=== PATIENT | male | born 1980 | race Caucasian/White ===

== ENCOUNTER 2017-09-09 18:00 | Emergency (ER) | payer BC ==
[~2017-09-09 18:00] MED LIST: ADDE5TAB PO; BACT800T5 PO; DOXY100T PO; HYDR-3533 PO; IBUP800T23 PO
[2017-09-09 18:01] VITALS: BP 164/81; PULSE 79; RESP 15; TEMP 98.2; O2SAT 97
--- NOTE | 2017-09-09 18:53 | RADRPT ---
EXAM DATE/TIME: 09/09/2017 18:24 [place] COMPARISON: No previous studies available for comparison. INDICATIONS : Chest pain. MEDICAL HISTORY : None. SURGICAL HISTORY : None. ENCOUNTER: Initial ACUITY: 3 days PAIN SCORE: 8/10 LOCATION: Bilateral chest FINDINGS: PA and lateral views of the chest demonstrate the lungs to be symmetrically aerated without evidence of mass, infiltrate or effusion. The cardiomediastinal contours are unremarkable. Osseous structure s are intact. CONCLUSION: Normal examination. Filipe Mendez MD on September 09, 2017 at 18:52 Board Certified Radiologist. This report was verified electronically.
[2017-09-09 20:09] LABS: BLOOD, URINE NEG (NEG); COMMENT (UR) CULT NOT INDICATED; CULTURE IF INDICATED CULT NOT INDICATED; GLUCOSE,URINE NEG (NEG); KETONE, URINE NEG (NEG); MUCUS URINE FEW /lpf (OCC); NITRITE,URINE NEG (NEG); SQUAMOUS EPITHELIAL CELL URINE <1 /hpf (0-5); URINE COLOR YELLOW (YELLW/STRAW)
[2017-09-09 20:22] LABS: AUTOMATED NEUTROPHIL # 4.5 TH/MM3 (1.8-7.7); BASOPHIL # 0.1 TH/MM3 (0-0.2); BASOPHIL % 0.8 % (0.0-2.0); EOSINOPHIL # 0.5 TH/MM3 (0-0.4); EOSINOPHIL % 5.5 % (0.0-4.0); HEMATOCRIT 45.4 % (39.0-51.0); HEMO FLAGS DIFF FINAL; LYMPH % 30.2 % (9.0-44.0); LYMPHOCYTE # 2.7 TH/MM3 (1.0-4.8); MEAN CELL VOLUME 89.6 FL (80.0-100.0); MEAN CORPUSCULAR HEMOGLOBIN 30.6 PG (27.0-34.0); MEAN CORPUSCULAR HGB CONC 34.1 % (32.0-36.0); MONO % 12.2 % (0.0-8.0); NEUT % 51.3 % (16.0-70.0); PLATELET COUNT 234 TH/MM3 (150-450); RED BLOOD COUNT 5.07 MIL/MM3 (4.50-5.90); WHITE BLOOD COUNT 8.8 TH/MM3 (4.0-11.0)
--- NOTE | 2017-09-09 20:22 | PD ---
HPI . LUQ Abdominal pain Chief Complaint: Abdominal Pain Time Seen by Provider: 19:08 Travel History International Travel<30 days: No Contact w/Intl Traveler<30days: No Traveled to known affect area: No History of Present Illness HPI Pt is a 36yo male who presents to the ED with LUQ abdominal pain with SOB, diaphoresis, and nausea x 2 days. Pt describes the pain as 4/10 and states that the pain is dull and irritating in nature and is "right below the L rib cage". Pt also states that his pain is more noticeable with change of position but otherwise has not had any modifiers. Pt was recently traveling back from a hunting trip in [place] and states that he may be a tad dehyrated and have some diarrhea related to his alcohol consumption on the trip. Pt has no significant PMHx and takes no medications. He has NKDA. PFSH Past Medical History ADD: Yes Integumentary: Yes (numerous sites with stitches placed/removed) Past Surgical History Surgical History: No Previous Surgery Social History Alcohol Use: Yes (Beer ) Tobacco Use: No Substance Use: Yes (occisional ) Allergies-Medications (Allergen,Severity, Reaction): Coded Allergies: No Known Allergies (Unverified Adverse Reaction, Unknown, 09/09/17) Reported Meds & Prescriptions Reported Meds & Active Scripts Active Review of Systems General / Constitutional: No: Fever, Chills, Weight Gain, Weight Loss, Other Eyes: No: Diploplia, Blurred Vision, Photophobia, Drainage, Redness, Foreign Body Sensation, Pain, Tearing, Blind Spots, Visual changes, Blindness, Other HENT: No: Headaches, Vertigo, Lightheadedness, Sore Throat, Rhinitis, Rhinorrhea, Congestion, Nosebleed, Neck Stiffness, Neck Pain, Masses, Gingival Bleeding, Dental Difficulties, Ear Discharge, Earache, Other Cardiovascular: Positive: Diaphoresis Respiratory: Positive: Shortness of Breath, Orthopnea Gastrointestinal: Positive: Nausea, Diarrhea, Abdominal Pain Genitourinary: No: Urgency, Frequency, Dysuria, Nocturia, Hematuria, Decreased Urinary Output, Oliguria, Hesitancy, Dribbling, Incontinence, Pelvic Pain, Flank Pain, Dyspareunia, Discharge, Dysmenorrhea, Menorrhagia, Metorrhagia, Vaginal Bleeding, Other Musculoskeletal: Positive: Myalgias, Pain Skin: No Rash, No Itching, No Dryness, No Lumps, No Hives, No Change in Pigmentation, No Change in nails, No Alopecia, No Lesions, No Breast Lumps, No Breast Tenderness, No Breast Swelling, No Other Neurologic: No: Weakness, Dizziness, Syncope, Focal Abnormalities, Coordination Problem, Tremor, Ataxia, Headache, Change in Mentation, Slurred Speech, Paresthesia, Incontinence, Seizures, Sensory Disturbance, Other Psychiatric: No: Anxiety, Depression, Suicidal Ideations, Disorder of Thought, Mood Disorder, Substance Abuse, Homicidal Ideation, Other Endocrine: No: Heat Intolerance, Cold Intolerance, Polyuria, Polydipsia, Other Hematologic/Lymphatic: No: Easy Bruising, Lymph Node Enlargement, Other Physical Exam Narrative GENERAL: alert and oriented x 4. NAD. HEAD: atraumatic, normocephalic. NECK: supple. no lymphadenopathy. SKIN: warm, dry, no tinting or cyanosis. ABDOMEN: soft, nondistended, nontender to superficial and deep palpation, normoactive bowel sounds. CV: RRR no rubs, gallops, or murmurs. good capillary refill. equal distal pulses. RESPIRATORY: CTA bilat, no rales, wheezes, or rhonchi, good aeration and breath sounds throughout. PSYCH: Appropriate mood and affect. Data Data Last Documented VS Vital Signs Date Time Temp Pulse Resp B/P (MAP) Pulse Ox O2 Delivery O2 Flow Rate FiO2 09/09/17 18:01 98.2 79 15 164/81 (108) 97 Orders Orders Complete Blood Count With Diff (09/09/17 18:) Comprehensive Metabolic Panel (09/09/17 18:) Lipase (09/09/17 18:) Prothrombin Time / Inr (Pt) (09/09/17 18:) Act Partial Throm Time (Ptt) (09/09/17 18:) Urinalysis - C+S If Indicated (09/09/17 18:) Electrocardiogram (09/09/17 18:) Chest, Pa & Lat (09/09/17 ) Labs Laboratory Tests Test 09/09/17 18:50 09/09/17 19:55 White Blood Count 8.8 TH/MM3 Red Blood Count 5.07 MIL/MM3 Hemoglobin 15.5 GM/DL Hematocrit 45.4 % Mean Corpuscular Volume 89.6 FL Mean Corpuscular Hemoglobin 30.6 PG Mean Corpuscular Hemoglobin Concent 34.1 % Red Cell Distribution Width 13.0 % Platelet Count 234 TH/MM3 Mean Platelet Volume 8.7 FL Neutrophils (%) (Auto) 51.3 % Lymphocytes (%) (Auto) 30.2 % Monocytes (%) (Auto) 12.2 % Eosinophils (%) (Auto) 5.5 % Basophils (%) (Auto) 0.8 % Neutrophils # (Auto) 4.5 TH/MM3 Lymphocytes # (Auto) 2.7 TH/MM3 Monocytes # (Auto) 1.1 TH/MM3 Eosinophils # (Auto) 0.5 TH/MM3 Basophils # (Auto) 0.1 TH/MM3 CBC Comment DIFF FINAL Differential Comment Prothrombin Time 10.7 SEC Prothromb Time International Ratio 1.0 RATIO Activated Partial Thromboplast Time 24.1 SEC Blood Urea Nitrogen 16 MG/DL Creatinine 1.07 MG/DL Random Glucose 104 MG/DL Total Protein 7.6 GM/DL Albumin 4.2 GM/DL Calcium Level 9.3 MG/DL Alkaline Phosphatase 62 U/L Aspartate Amino Transf (AST/SGOT) 20 U/L Alanine Aminotransferase (ALT/SGPT) 29 U/L Total Bilirubin 0.6 MG/DL Sodium Level 135 MEQ/L Potassium Level 3.7 MEQ/L Chloride Level 100 MEQ/L Carbon Dioxide Level 26.7 MEQ/L Anion Gap 8 MEQ/L Estimat Glomerular Filtration Rate 78 ML/MIN Lipase 95 U/L Urine Color YELLOW Urine Turbidity CLEAR Urine pH 6.0 Urine Specific [place] 1.029 Urine Protein TRACE mg/dL Urine Glucose (UA) NEG mg/dL Urine Ketones NEG mg/dL Urine Occult Blood NEG Urine Nitrite NEG Urine Bilirubin NEG Urine Urobilinogen LESS THAN 2.0 MG/DL Urine Leukocyte Esterase NEG Urine RBC LESS THAN 1 /hpf Urine WBC LESS THAN 1 /hpf Urine Squamous Epithelial Cells <1 /hpf Urine Mucus FEW /lpf Microscopic Urinalysis Comment CULT NOT INDICATED MDM Medical Decision Making Medical Screen Exam Complete: Yes Emergency Medical Condition: Yes Differential Diagnosis abdominal muscle strain vs. constipation vs. gastritis Narrative Course Patient presents for the evaluation of left upper quadrant/left lower chest pain which started a couple days ago. He looks very comfortable. CBC & BMP Diagram 09/09/17 18:50 Total Protein 7.6, Albumin 4.2, Calcium Level 9.3, Alkaline Phosphatase 62, Aspartate Amino Transf (AST/SGOT) 20, Alanine Aminotransferase (ALT/SGPT) 29, Total Bilirubin 0.6 Last Impressions Chest X-Ray 09/09/17 0000 Signed Impressions: Service Date/Time: Saturday, September 09, 2017 18:24 - CONCLUSION: Normal examination. Filipe Mendez MD UA is negative. He most likely has musculoskeletal pain. He will be discharged home with instructions to take ibuprofen and Flexeril for his pain. Follow up with his PMD if symptoms persist. Diagnosis Primary Impression: Abdominal pain Qualified Codes: R10.12 - Left upper quadrant pain Patient Instructions: Abdominal Pain (ED), General Instructions Med/Other Pt SpecificInfo: Prescription(s) given Scripts Cyclobenzaprine (Flexeril) 10 Mg Tab 10 MG PO TID for Muscle Spasm, #30 TAB 0 Refills Prov: Gabrielle Savage MD 09/09/17 Ibuprofen (Ibuprofen) 800 Mg Tab 800 MG PO Q8H Y for Pain/Inflammation, #60 TAB 0 Refills Prov: Gabrielle Savage MD 09/09/17 Disposition: 01 DISCHARGE HOME Condition: Stable Gabrielle Savage MD Sep 09, 2017 20:22
[2017-09-09 20:26] LABS: APTT (PATIENT) 24.1 SEC (24.3-30.1); PROTHROMBIN TIME - PATIENT 10.7 SEC (9.8-11.6)
[2017-09-09 20:30] LABS: ANION GAP 8 MEQ/L (5-15); AST (GOT) 20 U/L (15-37); BICARBONATE 26.7 MEQ/L (21.0-32.0); BLOOD UREA NITROGEN 16 MG/DL (7-18); CHLORIDE 100 MEQ/L (98-107); GLOMERULAR FILTRATION RATE 78 ML/MIN (>89); POTASSIUM 3.7 MEQ/L (3.5-5.1); SODIUM (NA) 135 MEQ/L (136-145)
[2017-09-09 20:32] LABS: ALT (GPT) 29 U/L (12-78)
[2017-09-09 20:35] LABS: ALKALINE PHOSPHATASE 62 U/L (45-117); TOTAL BILIRUBIN ADULT 0.6 MG/DL (0.2-1.0)
[2017-09-09] MEDS ORDERED: IBUP1TAB7 PO (20:54)
[2017-09-09] MEDS ORDERED: CYCL10TA PO (20:54)
--- NOTE | 2017-09-10 14:18 | EKG ---
Date Performed: 09/09/2017 Time Performed: 18:50:53 PTAGE: 36 years EKG: Sinus rhythm NORMAL ECG NO PREVIOUS TRACING DOCTOR: Blair Cabrera Interpretating Date/Time 09/10/2017 14:12:47
== END 2017-09-09 23:32 | disposition home or self-care (01) ==
LOC: NEPD 18:00
DX: R10.12 Left upper quadrant pain (principal)
CPT/HCPCS: 71020; 80053; 81001; 83690; 85025; 85610; 85730; 93005